=== PATIENT | male | born 1945 | race Caucasian/White ===

== ENCOUNTER 2019-05-24 05:00 | Day surgery (SDC) | payer MEDICARE ==
[2019-05-16 12:24] LABS: BASOPHILS # (AUTO) 0.1 X10'3 (0-0.2); BASOPHILS % (AUTO) 1.1 % (0-1); EOSINOPHILS # (AUTO) 0.3 X10'3 (0-0.9); EOSINOPHILS % (AUTO) 3.9 % (0-6); LYMPHOCYTES # (AUTO) 2.1 X10'3 (1.1-4.8); LYMPHOCYTES % (AUTO) 24.7 % (21-51); MEAN CORPUSCULAR HGB CONC 34.1 g/dL (33.0-36.5); MEAN CORPUSCULAR VOLUME 93.8 FL (78-98); MEAN PLATELET VOLUME 7.5 FL (7.4-10.4); MONOCYTES # (AUTO) 0.6 X10'3 (0-0.9); MONOCYTES % (AUTO) 7.3 % (2-12); NEUTROPHILS # (AUTO) 5.2 X10'3 (1.8-7.7); PRE OP HEMATOCRIT 44.6 % (42.0-52.0); PRE OP HEMOGLOBIN 15.2 g/dL (14.0-17.9); PRE OP PLATELET COUNT 322 X10'3 (140-440); RED BLOOD COUNT 4.75 X10'6 (4.70-6.10); RED CELL DISTRIBUTION WIDTH 13.4 % (11.5-14.5)
[2019-05-16 12:47] LABS: ALBUMIN 3.8 G/DL (3.4-5.0); ALBUMIN/GLOBULIN RATIO 1.2 (1.1-1.5); ALKALINE PHOSPHATASE 53 IU/L (46-116); BLOOD UREA NITROGEN 11 MG/DL (7-18); CALCIUM 8.5 MG/DL (8.5-10.1); CHLORIDE 104 MMOL/L (99-107); PRE OP ALT 36 U/L (30-65); PRE OP ANION GAP 6 (8-16); PRE OP AST 23 U/L (10-37); PRE OP BILIRUB, TOTAL 0.7 MG/DL (0.0-1.0); PRE OP GLUCOSE 143 MG/DL (70-104); PRE OP POTASSIUM 3.7 MMOL/L (3.4-5.1); PRE OP SODIUM 142 MMOL/L (135-145); TOTAL CARBON DIOXIDE 31.7 MMOL/L (24-32); eGFR 66 ML/MIN
[~2019-05-24] VITALS: Ht 177.8 cm; Wt 79.4 kg
[2019-05-24] VITALS (10 sets, daily range): BP systolic 122–139; BP diastolic 65–83
[~2019-05-24 05:00] MED LIST: ATOR10TA87 PO; GLUC-150 PO; LEVO50TA8 PO; LOSA1TAB36 PO; MULT-1085 PO; TRAZ-251 PO; UBID1CAP54 PO; [UNRECOGNIZED DRUG - CODE] PO; ringers solution, lacted 1,000 ML IV SCH
[2019-05-24] MEDS ORDERED: cefazolin/dext.iso 2gm/100ml 100 ML IV ONE (05:30)
[2019-05-24] MEDS ORDERED: vancomycin inj 1,500 MG in normal saline 300ml IV soln IV ONE (05:30)
[2019-05-24] MEDS ORDERED: famotidine 10mg tablet PO ONE (05:30)
[2019-05-24] MEDS ORDERED: LIDOcaine 1% (10mg/ml) 2ml vial ONE (07:00)
[2019-05-24] MEDS ORDERED: epiNEPHrine 1 mg/ml inj ONE (07:21)
[2019-05-24] MEDS ORDERED: ROPIVAcaine 0.5% (5mg/ml) 30ml vial ONE ×2 (07:21→10:42)
[2019-05-24] MEDS ORDERED: ketorolac trometh. 30mg/ml inj. ONE (07:21)
[2019-05-24] MEDS ORDERED: morphine 10mg/ml inj. ONE (07:21)
[2019-05-24] MEDS ORDERED: ceFAZolin 1000mg inj ONE (07:21)
[2019-05-24] MEDS ORDERED: vancomycin 1,000mg inj ONE (07:21)
[2019-05-24] MEDS ORDERED: Thrombin (Bovine) 5,000 unit vial TP ONE (07:21)
[2019-05-24] MEDS ORDERED: fentaNYL/PF 50MCG/1 ML 2ML syringe ONE (09:02)
[2019-05-24] MEDS ORDERED: MIDAZolam 1mg/ml 10ml vial ONE (09:02)
[2019-05-24] MEDS ORDERED: tranexamic acid inj. 1,000 MG in normal saline 100ml IV soln 100 ML IV ONE ×2 (09:10→13:55)
[2019-05-24] MEDS ORDERED: calcium chloride 100 MG/1 ML inj IV ONE (09:39)
[2019-05-24] MEDS ORDERED: propofol inj 20 ML IV ONE (10:42)
[2019-05-24] MEDS ORDERED: LIDOcaine 1%/PF 5ML 10 MG/ML VIAL ONE (10:42)
[2019-05-24] MEDS ORDERED: ondansetron/PF 4mg/2ml inj IV PRN (10:55)
[2019-05-24] MEDS ORDERED: oxyCODONE IR 5mg (immed. release) tablet PO PRN ×2 (10:55)
[2019-05-24] MEDS ORDERED: diphenhydrAMINE 25mg capsule PO PRN ×2 (10:55)
[2019-05-24] MEDS ORDERED: acetaminophen 325mg tablet PO PRN (10:55)
[2019-05-24] MEDS ORDERED: bisacodyl 10mg suppository rectal RC PRN (10:55)
[2019-05-24] MEDS ORDERED: magnesium hydroxide 30ml (MOM) UD suspension PO PRN (10:55)
[2019-05-24] MEDS ORDERED: ROPIVAcaine 0.2%/PF PUMP/bolus 550 ML ADDCANAL SCH (11:33)
--- NOTE | 2019-05-24 11:39 | NUR ---
Received from OR via ORTHO BED WITH [facility] , accompanied by Anesthesiologist LASHAWN and report given by Anesthesiolgist. PATIENT WITH L2 SENSATION LEVEL TO LEFT LE. PATIENT WITH + DP TO LET FOOT. PATIENT WITH KNEE WRAP PRESENT AND IS CDI. LAMAR DRESSING PRESENT AND RUNNING. RIZO CATHETER REMOVED AT REQUEST OF MD HAINES. 400 CC URINE OUT. VSS. 18G PIV IN LEFT FOREARM. Addendum: 05/24/19 at 1156 by Gabriele Pool RN, RN Amended: Links added.
[2019-05-24] MEDS ORDERED: ROPIVAcaine 0.2% (10 MG/5 ML) BOLUS INJECTION INTERSCALE PRN (11:45)
--- NOTE | 2019-05-24 11:56 | NUR ---
ADDENDUM. ERROR IN LR FLUID INTAKE. CORRECTION - LR 300 FROM RR. Addendum: 05/24/19 at 1157 by Gabriele Pool RN, RN Amended: Links added.
--- NOTE | 2019-05-24 12:49 | NUR ---
Report called to receiving nurse. Transferred via ORTHO BED WITH [facility] WITH ONE BAG OF Belongings . Special Issues communicated to receiving nurse STUART FIERROS. SENSATION LEVEL L2-3. PUMPING ANKLE ON LEFT AND RIGHT, LAMAR DRAIN INTACT WITH NO LEAKS. PATIENT RN ACCEPTING PATIENT, Addendum: 05/24/19 at 1259 by Gabriele Franklin - JAMAL RN Amended: Links added.
--- NOTE | 2019-05-24 12:50 | NUR ---
RECEIVED REPORT FROM ALAN BERRY IN PACU, ALL QUESTIONS AND CONCERNS ADDRESSED. PATIENT ARRIVED VIS HOSPITAL BED. LR INFUSING ORDERED. LAMAR DRESSING TO LEFT KNEE WITH ICE PACK, CDI. ON-Q PUMP IN PLACE SET AT 2. VSS CHARTED. SENSATION NOTED AT LEFT KNEE, WILL CONTINUE TO MONITOR.
--- NOTE | 2019-05-24 13:15 | NUR ---
ON Q INCREASED TO 4 ORDERED
--- NOTE | 2019-05-24 13:20 | NUR ---
SENSATION NOTED AT LEFT ANKLE
--- NOTE | 2019-05-24 13:40 | NUR ---
PATIENT HAS SENSATION TO LEFT LEG, ABLE TO FLEX FOOT
[2019-05-24] MEDS ORDERED: acetaminophen 325mg tablet PO SCH (14:00)
--- NOTE | 2019-05-24 14:00 | NUR ---
PATIENT AMBULATED WITH PHYSICAL THERAPY. OK TO DC HOME PER PHYSICAL THERAPY
--- NOTE | 2019-05-24 15:00 | NUR ---
PATIENT UNABLE TO VOID, BLADDER SCANNED [address] JOHNSON MADE AWARE. OK TO DC HOME, NEEDS TO TAKE FLOMAX WHEN HE GETS HOME. IF HE IS UNABLE TO VOID IN 5-6 HOURS HE NEEDS RETURN TO ER.
--- NOTE | 2019-05-24 15:48 | NUR ---
PATIENT DC CRITERIA MET. PATIENT DC INSTRUCTION GIVEN PATIENT AND FAMILY VERBALIZED UNDERSTANDING, PIV DC'D, CATH TIP IN PLACE. ON-Q PUMP IN PLACE, PIC DRESSING IN PLACE, CDI. PATIENT TO PERSONAL VEHICLE WITH ALL PERSONAL BELONGINGS ACCOMPANIED BY STAFF AND FAMILY.
[2019-05-24] MEDS ORDERED: sennosides 8.6mg tablet PO SCH (21:00)
[2019-05-25] MEDS ORDERED: aspirin 325mg tablet PO SCH (08:30)
[2019-05-25] MEDS ORDERED: celeCOXIB 100mg capsule PO SCH (20:00)
[2019-05-26] MEDS ORDERED: acetaminophen 325mg tablet PO PRN (10:55)
== END 2019-05-24 15:40 | disposition home or self-care (01) ==
LOC: PAS 05:00 → EDSTATUS 07:30 → PAS 15:40 → UNDODISIN 15:40
PROVIDERS: ATTEND Orthopaedic Surgery
DX: M17.12 Unilateral primary osteoarthritis, left knee (principal); M25.562 Pain in left knee; Z79.899 Other long term (current) drug therapy; G24.9 Dystonia, unspecified; I10 Essential (primary) hypertension
CPT/HCPCS: 27442; 64447; 76942; S2900; 36415; 80053; 82948; 84443; 85025; 87081; 93005; 97110; 97116; 97161; A4215; A6454; A7000; C1713; C1758; C1776; J0171; J0690; J1885; J2001; J2250; J2270; J2704; J2795; J3010; J3370; J7120